=== PATIENT | male | born 1985 | race Caucasian/White ===

== ENCOUNTER 2020-02-16 23:50 | Emergency (ER) | payer SELFPAY ==
[~2020-02-16] VITALS: Ht 170 cm; Wt 90.0 kg
--- OUTSIDE RECORDS SUMMARY | 2020-02-16 23:59 | XMS REPORT | Referral Summary ---
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 Phone No PCP, Pt States PCP Encounter [facility] [id number] Date(s): 06/25/15 - 06/25/15 [facility] [address] [place] [address] [phone] Discharge Diagnosis: Work related injury Discharge Diagnosis: Finger laceration Final: OPEN FRACTURE OF DISTAL PHALANX OR PHALANGES OF HAND Final: Need for prophylactic vaccination and inoculation against Diptheria-tetan us-pertussis, combined [DTP] [DTaP] Final: CAUGHT ACCIDENTALLY IN OR BETWEEN OBJECTS Final: ACCIDENTS OCCURRING IN PUBLIC BUILDING Discharge Diagnosis: Open avulsion fracture of distal phalanx of finger Discharge Disposition: 01-Home or Self Care Attending Physician: Ravindra Elias DO Admitting Physician: Ravindra Elias DO Vital Signs Most recent to 1 oldest [Reference Range]: Temperature Oral 37.1 degC [35.8-37.3 degC] (06/25/15 5:20 PM) Peripheral Pulse 95 bpm Rate [60-100 bpm] (06/25/15 5:20 PM) Respiratory Rate 20 br/min [14-20 br/min] (06/25/15 5:20 PM) Blood Pressure 133/77 mmHg [90-140/60-90 mmHg] (06/25/15 5:20 PM) SpO2 98 % (06/25/15 5:20 PM) Problem List No data available for this section Allergies, Adverse Reactions, Alerts No Known Medication Allergies Medications ibuprofen 0 Refill(s) Start Date: 06/25/15 Status: Ordered Results No data available for this section Immunizations Vaccine Date Refusal Reason tetanus/diphth/pertuss (Tdap) adult/adol 06/25/15 Procedures Procedure Date Related Diagnosis Body Site Simple repair of superficial wounds of scalp, 06/25/15 neck, axillae, external genitalia, trun k and/or extremities (including hands and feet); 7.6 cm to 12.5 cm Simple repair of superficial wounds of scalp, 06/25/15 neck, axillae, external genitalia, trun k and/or extremities (including hands and feet); 7.6 cm to 12.5 cm Simple repair of superficial wounds of scalp, 06/25/15 neck, axillae, external genitalia, trun k and/or extremities (including hands and feet); 7.6 cm to 12.5 cm Social History Social History Type Response Smoking Status Never smoker Assessment and Plan No data available for this section
[2020-02-17] MEDS ORDERED: NS IV 1000 ML 1,000 ML IV ONE (00:15)
[2020-02-17] MEDS ORDERED: THIAMINE 100 MG/ML 2 ML (VITAMIN B-1) VIAL IV ONE (00:15)
[2020-02-17] MEDS ORDERED: MAGNESIUM 1 GM/100 ML IVPB 100 ML IV ONE (00:15)
[2020-02-17] MEDS ORDERED: FOLIC ACID 1 MG TAB PO ONE (00:15)
--- NOTE | 2020-02-17 00:20 | ED General ---
General Stated Complaint: FALL Source of Information: Patient, Caregiver (girlfriend) Exam Limitations: Intoxication (patient is significantly intoxicated with lateral gaze nystagmus no evidence of significant trauma however he has covered with mud and dirt but agrees to have evaluation and care) History of Present Illness Date Seen by Provider: Feb 17, 2020 Time Seen by Provider: 00:01 Initial Comments 34-year-old male referred by girlviry to the emergency room. Patient has been drinking and is intoxicated. He is fallen into a muddy area is covered with mud he has no obvious lacerations and has no shoulder or elbow or wrist pain no hip knee or ankle pain. Patient admits to drinking large amounts of alcohol this evening. Girlfriend says she wants him evaluated in the emergency room. Patient denies any other serious medical problems of cardiac pulmonary GI or renal disease. He states he has a history of a heart murmur although this is not identifiable on examination this evening. Patient has given informed consent for hydration and diagnostic evaluation. Patient will be started on IV saline with thiamine and folate IV. Timing/Duration: 12 Hours Severity: Moderate Modifying Factors: improves with Other (arced intoxication lateral gaze nystagmus no evidence of head trauma) Associated Systoms: Other (marked intoxication) Allergies and Home Medications Allergies Coded Allergies: No Known Allergies (Verified Allergy, Unknown, 03/15/06) Patient Home Medication List Home Medication List Reviewed: Yes Review of Systems Review of Systems Constitutional: other (vision with acute alcohol intoxication. Girlfriend reports he's been drinking patient denies any other serious medical problems with the exception of a heart murmur which is not identifiable on this exam) EENTM: no symptoms reported, other (a she has fallen into a muddy area and is covered with mud) Respiratory: no symptoms reported Cardiovascular: no symptoms reported (has a history of a innocent heart murmur) Gastrointestinal: no symptoms reported (admits to drinking all day) Genitourinary: no symptoms reported Musculoskeletal: no symptoms reported (with achiness in his muscles but no signs of trauma) Skin: no symptoms reported Psychiatric/Neurological: Anxiety, Other (intoxicated) Hematologic/Lymphatic: No Symptoms Reported Immunological/Allergic: no symptoms reported Past Ncjkdra-Xxhqhi-Zhlzye Hx Past Med/Social Hx: Reviewed and Corrections made Patient Social History Alcohol Use: Regular Use Alcohol Beverage of Choice: Other ( presents with acute alcohol intoxication) Recreational Drug Use: No Smoking Status: Current Everyday Smoker Recent Foreign Travel: No Contact w/Someone Who Travel: No Seasonal Allergies Seasonal Allergies: No Past Medical History Surgeries: No Respiratory: No Currently Using CPAP: No Currently Using BIPAP: No Cardiac: No Neurological: No Gastrointestinal: No Musculoskeletal: No Endocrine: No Are Your Blood Sugars Over 250: No HEENT: No Cancer: No Psychosocial: Yes (alcohol use disorder) Integumentary: No Blood Disorders: No Physical Exam Vital Signs Vital Signs - First Documented 02/16/20 23:55 Temp 36.6 Pulse 72 Resp 16 B/P (MAP) 120/74 (89) Pulse Ox 98 O2 Delivery Room Air Capillary Refill : Height, Weight, BMI Height: '" Weight: lbs. oz. kg; BMI Method: General Appearance: WD/WN, Moderate Distress, Other (acute alcohol intoxication girlfriend referred patient to the emergency room) Eyes: Bilateral Eye PERRL, Bilateral Eye EOMI, Bilateral Eye Other (lateral gaze K Stegmann is consistent with alcohol intoxication) HEENT: PERRL/EOMI, Pharynx Normal (poor hygiene) Neck: Full Range of Motion, Normal Inspection, Non Tender, Supple Respiratory: Chest Non Tender, Lungs Clear, Normal Breath Sounds, No Accessory Muscle Use, No Respiratory Distress Cardiovascular: Regular Rate, Rhythm, No Edema, No Gallop, No JVD, No Murmur (patient reports history of a murmur in childhood but this is not identifiable at this time) Gastrointestinal: Normal Bowel Sounds, No Organomegaly, No Pulsatile Mass, Non Tender, Soft Back: Normal Inspection, No CVA Tenderness, No Vertebral Tenderness Extremity: Normal Capillary Refill, Normal Inspection, Normal Range of Motion, Non Tender, No Calf Tenderness Neurologic/Psychiatric: Other (acute alcohol intoxication) Reflexes: 2+ Bicep (R), 2+ Bicep (L), 2+ Knee (R), 2+ Knee (L) Skin: Normal Color, Warm/Dry (but covered with moderate no evidence of trauma) Lymphatic: No Adenopathy Progress/Results/Core Measures Suspected Sepsis SIRS Temperature: Pulse: Respiratory Rate: Laboratory Tests 02/17/20 00:28: White Blood Count 8.4 Blood Pressure / Mean: Laboratory Tests 02/17/20 00:28: Creatinine 0.73, Platelet Count 189, Total Bilirubin 0.2 Results/Orders Lab Results Laboratory Tests Test 02/17/20 00:28 02/17/20 00:31 Range/Units White Blood Count 8.4 4.3-11.0 10^3/uL Red Blood Count 4.89 4.35-5.85 10^6/uL Hemoglobin 14.3 13.3-17.7 G/DL Hematocrit 42 40-54 % Mean Corpuscular Volume 85 80-99 FL Mean Corpuscular Hemoglobin 29 25-34 PG Mean Corpuscular Hemoglobin Concent 34 32-36 G/DL Red Cell Distribution Width 12.6 10.0-14.5 % Platelet Count 189 130-400 10^3/uL Mean Platelet Volume 9.9 7.4-10.4 FL Neutrophils (%) (Auto) 69 42-75 % Lymphocytes (%) (Auto) 24 12-44 % Monocytes (%) (Auto) 7 0-12 % Eosinophils (%) (Auto) 0 0-10 % Basophils (%) (Auto) 1 0-10 % Neutrophils # (Auto) 5.8 1.8-7.8 X 10^3 Lymphocytes # (Auto) 2.0 1.0-4.0 X 10^3 Monocytes # (Auto) 0.6 0.0-1.0 X 10^3 Eosinophils # (Auto) 0.0 0.0-0.3 10^3/uL Basophils # (Auto) 0.0 0.0-0.1 10^3/uL Neutrophils % (Manual) 65 % Lymphocytes % (Manual) 18 % Monocytes % (Manual) 6 % Atypical Lymphocytes 11 % Sodium Level 137 135-145 MMOL/L Potassium Level 4.1 3.6-5.0 MMOL/L Chloride Level 101 98-107 MMOL/L Carbon Dioxide Level 20 L 21-32 MMOL/L Anion Gap 16 H 5-14 MMOL/L Blood Urea Nitrogen 8 7-18 MG/DL Creatinine 0.73 0.60-1.30 MG/DL Estimat Glomerular Filtration Rate > 60 BUN/Creatinine Ratio 11 Glucose Level 126 H 70-105 MG/DL Calcium Level 8.7 8.5-10.1 MG/DL Corrected Calcium 8.3 L 8.5-10.1 MG/DL Total Bilirubin 0.2 0.1-1.0 MG/DL Aspartate Amino Transf (AST/SGOT) 45 H 5-34 U/L Alanine Aminotransferase (ALT/SGPT) 52 0-55 U/L Alkaline Phosphatase 63 40-136 U/L Total Protein 7.9 6.4-8.2 GM/DL Albumin 4.5 3.2-4.5 GM/DL Serum Alcohol 310 *H <10 MG/DL Urine Color YELLOW Urine Clarity CLEAR Urine pH 5.0 5-9 Urine Specific [place] 1.010 L 1.016-1.022 Urine Protein NEGATIVE NEGATIVE Urine Glucose (UA) NEGATIVE NEGATIVE Urine Ketones NEGATIVE NEGATIVE Urine Nitrite NEGATIVE NEGATIVE Urine Bilirubin NEGATIVE NEGATIVE Urine Urobilinogen 0.2 < = 1.0 MG/DL Urine Leukocyte Esterase NEGATIVE NEGATIVE Urine RBC (Auto) NEGATIVE NEGATIVE Urine RBC NONE /HPF Urine WBC NONE /HPF Urine Squamous Epithelial Cells 0-2 /HPF Urine Crystals NONE /LPF Urine Bacteria NEGATIVE /HPF Urine Casts NONE /LPF Urine Mucus NEGATIVE /LPF Urine Culture Indicated NO Urine Opiates Screen NEGATIVE NEGATIVE Urine Oxycodone Screen NEGATIVE NEGATIVE Urine Methadone Screen NEGATIVE NEGATIVE Urine Propoxyphene Screen NEGATIVE NEGATIVE Urine Barbiturates Screen NEGATIVE NEGATIVE Ur Tricyclic Antidepressants Screen NEGATIVE NEGATIVE Urine Phencyclidine Screen NEGATIVE NEGATIVE Urine Amphetamines Screen NEGATIVE NEGATIVE Urine Methamphetamines Screen NEGATIVE NEGATIVE Urine Benzodiazepines Screen NEGATIVE NEGATIVE Urine Cocaine Screen NEGATIVE NEGATIVE Urine Cannabinoids Screen NEGATIVE NEGATIVE My Orders Orders - LINDA OAKES DO Alcohol (02/17/20 00:10) Cbc And Manual Diff (02/17/20 00:10) Comprehensive Metabolic Panel (02/17/20 00:10) Urinalysis (02/17/20 00:10) Ns Iv 1000 Ml (Sodium Chloride 0.9%) (02/17/20 00:15) Thiamine Injection (Vitamin B-1 Injectio (02/17/20 00:15) Folic Acid Tablet (Folic Acid Tablet) (02/17/20 00:15) Magnesium 1 Gm/100 Ml Ivpb (Magnesium Swift (02/17/20 00:15) Drug Screen Stat (Urine) (02/17/20 00:14) Ed Iv/Invasive Line Start (02/17/20 00:51) Medications Given in ED Current Medications Medications Dose Ordered Sig/Jhony Route Start Time Stop Time Status Last Admin Dose Admin Folic Acid 1 mg ONCE ONCE PO 02/17/20 00:15 02/17/20 00:16 DC 02/17/20 00:36 1 MG Magnesium Sulfate/ Dextrose 100 ml @ 100 mls/hr ONCE ONCE IV 02/17/20 00:15 02/17/20 01:14 DC 02/17/20 00:36 100 MLS/HR Sodium Chloride 1,000 ml @ 999 mls/hr Q1H ONCE IV 02/17/20 00:15 02/17/20 01:15 DC 02/17/20 00:35 999 MLS/HR Thiamine HCl 100 mg ONCE ONCE IV 02/17/20 00:15 02/17/20 00:16 DC 02/17/20 00:36 100 MG Vital Signs/I&O 02/16/20 23:55 Temp 36.6 Pulse 72 Resp 16 B/P (MAP) 120/74 (89) Pulse Ox 98 O2 Delivery Room Air Capillary Refill : Progress Note : Time: 01:36 Progress Note Patient is now more alert and asking to go home. One hour ago his blood alcohol was 310. Rest of his labs are essentially normal. Patient is aware of the risks of continued alcohol use disorder. Girlfriends wanted to take charge of him and to monitor him for the evening. Patient is strongly encouraged to drink plenty of fluids. He has received 1 L of normal saline in addition to 100 mg of thiamine and 1 mg of folate and 1 g of magnesium. Patient is aware that his continued use of alcohol will cause significant health complications for him. Departure Impression Primary Impression: Acute alcoholic intoxication Additional Impression: Alcohol abuse Disposition: 01 HOME, SELF-CARE (with a girlfriend supervise him) Condition: Improved Departure-Patient Inst. Decision time for Depature: 01:41 Referrals: NO,LOCAL PHYSICIAN (PCP) Primary Care Physician Patient Instructions: ALCOHOL AND SUBSTANCE ABUSE, Alcohol Use - When Is Drinking a Problem? Add. Discharge Instructions: The patient came in with acute alcohol intoxication blood alcohol was 310. Patient woke up one hour later asking to be discharged to his girlfriend. Patient is aware that continued alcohol use will cause significant harm to his medical in emotional status. He is medically stable at this time but still intoxicated with alcohol. Girlfriend will provide him with safe travel and not allow him to drive. She will also continue to hydrate him with nonalcoholic beverages. LINDA OAKES DO Feb 17, 2020 00:20
[2020-02-17 00:40] LABS: BASOPHILS % (AUTO) 1 % (0-10); EOSINOPHILS % (AUTO) 0 % (0-10); HEMATOCRIT 42 % (40-54); HEMOGLOBIN 14.3 G/DL (13.3-17.7); LYMPHOCYTES % (AUTO) 24 % (12-44); MEAN CORPUSCULAR HEMOGLOBIN 29 PG (25-34); MEAN CORPUSCULAR HGB CONC 34 G/DL (32-36); MEAN CORPUSCULAR VOLUME 85 FL (80-99); MEAN PLATELET VOLUME 9.9 FL (7.4-10.4); MONOCYTES # (AUTO) 0.6 X 10^3 (0.0-1.0); MONOCYTES % (AUTO) 7 % (0-12); NEUTROPHILS # (AUTO) 5.8 X 10^3 (1.8-7.8); NEUTROPHILS % (AUTO) 69 % (42-75); PLATELET COUNT 189 10^3/uL (130-400); RED CELL DISTRIBUTION WIDTH 12.6 % (10.0-14.5); WHITE BLOOD COUNT 8.4 10^3/uL (4.3-11.0)
[2020-02-17 00:45] LABS: BILIRUBIN,URINE NEGATIVE (NEGATIVE); CLARITY,URINE CLEAR; COLOR,URINE YELLOW; GLUCOSE, URINE (UA) NEGATIVE (NEGATIVE); KETONES,URINE NEGATIVE (NEGATIVE); NITRITE,URINE NEGATIVE (NEGATIVE); PROTEIN,URINE NEGATIVE (NEGATIVE)
[2020-02-17 00:46] LABS: BACTERIA,URINE NEGATIVE /HPF; LEUKOCYTE ESTERASE ,URINE NEGATIVE (NEGATIVE); SQUAMOUS EPITHELIAL CELL,UR 0-2 /HPF
[2020-02-17 00:52] LABS: AMPHETAMINE SCREEN, URINE NEGATIVE (NEGATIVE); BARBITURATE SCREEN URINE NEGATIVE (NEGATIVE); BENZODIAZEPINES SCREEN URINE NEGATIVE (NEGATIVE); CANNABINOID SCREEN, URINE NEGATIVE (NEGATIVE); COCAINE SCREEN URINE NEGATIVE (NEGATIVE); METHADONE STAT NEGATIVE (NEGATIVE); METHAMPHETAMINE SCREEN URINE S NEGATIVE (NEGATIVE); OPIATE SCREEN URINE NEGATIVE (NEGATIVE); OXYCODONE STAT NEGATIVE (NEGATIVE); PROPOXYPHENE STAT NEGATIVE (NEGATIVE); TRICYCLIC ANTIDEPRESSANTS SCRE NEGATIVE (NEGATIVE)
[2020-02-17 00:55] LABS: ATYPICAL LYMPHOCYTES 11 %; LYMPHOCYTES % (MANUAL) 18 %; MONOCYTES % (MANUAL) 6 %; NEUTROPHILS % (MANUAL) 65 %
[2020-02-17 00:56] LABS: ALANINE AMINOTRANSFERASE 52 U/L (0-55); ALKALINE PHOSPHATASE 63 U/L (40-136); BILIRUBIN,TOTAL 0.2 MG/DL (0.1-1.0); BUN/CREATININE RATIO 11; CALCIUM 8.7 MG/DL (8.5-10.1); CARBON DIOXIDE 20 MMOL/L (21-32); CHLORIDE 101 MMOL/L (98-107); CREATININE SERUM 0.73 MG/DL (0.60-1.30); GFR ESTIMATED > 60; GLUCOSE 126 MG/DL (70-105); POTASSIUM 4.1 MMOL/L (3.6-5.0); SODIUM 137 MMOL/L (135-145)
[2020-02-17 00:57] LABS: ALBUMIN 4.5 GM/DL (3.2-4.5); TOTAL PROTEIN 7.9 GM/DL (6.4-8.2)
[2020-02-17 01:50] VITALS: BP 110/66
== END 2020-02-17 01:50 | disposition home or self-care (01) ==
LOC: EDUNIT# 23:50 → ER FS 23:55
DX: F10.229 Alcohol dependence with intoxication, unspecified (principal); Y90.8 Blood alcohol level of 240 mg/100 ml or more
CPT/HCPCS: 36415; 80053; 80306; 80320; 81000; 85007; 85027; 96361; 96365; 96375

== ENCOUNTER 2020-09-20 15:35 | Emergency (ER) | payer SELFPAY ==
[~2020-09-20] VITALS: Ht 170.1 cm; Wt 95.6 kg
--- NOTE | 2020-09-20 15:44 | ED Integumentary General ---
General Stated Complaint: LT INDEX FINGER LAC History of Present Illness Date Seen by Provider: Sep 20, 2020 Time Seen by Provider: 15:44 Initial Comments 35-year-old male was working with a grinder operator surface tool. The grinder operator surface tool slipped and he suffered a laceration on the dorsal aspect of his left index finger. An approximate 3 cm laceration on the proximal aspect between the 2 joints. He does have full range of motion, no other injury reported. Last tetanus was within 5 years. Allergies and Home Medications Allergies Coded Allergies: No Known Allergies (Verified Allergy, Unknown, 03/15/06) Patient Home Medication List Home Medication List Reviewed: Yes Review of Systems Review of Systems Constitutional: no symptoms reported EENTM: no symptoms reported Gastrointestinal: no symptoms reported Genitourinary: no symptoms reported Musculoskeletal: see HPI Skin: see HPI Psychiatric/Neurological: No Symptoms Reported Past Nlvrovh-Leumpd-Qusxri Hx Past Med/Social Hx: Reviewed Nursing Past Med/Soc Hx Patient Social History Alcohol Beverage of Choice: Other Recent Foreign Travel: No Contact w/Someone Who Travel: No Recent Hopitalizations: No Seasonal Allergies Seasonal Allergies: No Past Medical History Surgeries: No Respiratory: No Currently Using CPAP: No Currently Using BIPAP: No Cardiac: No Neurological: No Genitourinary: No Gastrointestinal: No Musculoskeletal: No Endocrine: No HEENT: No Cancer: No Psychosocial: Yes (alcohol use disorder) Integumentary: No Blood Disorders: No Physical Exam Vital Signs Capillary Refill : General Appearance: WD/WN, no apparent distress Cardiovascular: normal peripheral pulses, regular rate, rhythm Respiratory: lungs clear, normal breath sounds Gastrointestinal: non tender, soft Extremities: normal range of motion Skin Problem Location: other (left index finger) Skin Problem Character: linear (approximate 4 cm laceration) Procedures/Interventions Wound Location: Upper Extremities Other Wound Location Dorsal aspect left index finger Wound Length (cm): 4 Wound's Depth, Shape: into muscle Wound Explored: clean Betadine Prep?: Yes Anesthesia: 1% Lidocaine Volume Anesthetic (ccs): 3 Wound Debrided: minimal Suture: Prolene Suture Size: 4-0 Number of Sutures: 4 Sterile Dressing Applied?: Yes Progress Patient tolerated well with good approximation, no immediate complications Progress/Results/Core Measures Results/Orders My Orders Orders - MERY HINTON DO Lidocaine 1% Inj 20 Ml (Xylocaine 1% Inj (09/20/20 15:45) Departure Impression Primary Impression: Laceration of left index finger without foreign body without damage to nail Qualified Codes: S61.211A - Laceration without foreign body of left index finger without damage to nail, initial encounter Disposition: 01 HOME, SELF-CARE Condition: Stable Departure-Patient Inst. Referrals: MOISES NG APRN (PCP/Family) Primary Care Physician Patient Instructions: Laceration Repair With Stitches (DC), Wound Care Add. Discharge Instructions: Return to the ER or to your primary care provider in approximately 10 days for suture removal Keep clean with warm soapy water, keep dry and covered when working Do not submerge for 48 hours Monitor for infection MERY HINTON DO Sep 20, 2020 15:44
[2020-09-20 15:45] VITALS: BP 112/74
[2020-09-20] MEDS ORDERED: LIDOCAINE 1% INJ 20 ML 20 ML VIAL INJ ONE (15:45)
== END 2020-09-20 16:51 | disposition home or self-care (01) ==
LOC: EDUNIT# 15:35 → ER FS 15:36
DX: S61.211A Laceration without foreign body of left index finger without damage to nail, initial encounter (principal); W29.0XXA Contact with powered kitchen appliance, initial encounter
CPT/HCPCS: 12002

== ENCOUNTER → 2020-12-26 | Outpatient (CLI) | payer SELFPAY ==
--- NOTE | 2020-12-26 11:54 | Diagnostic Imaging Report ---
INDICATION: Pain. Four views of the left ribs are performed. No fracture, dislocation or bony destructive process. No abnormal periosteal reaction. The left lung was clear. No pleural fluid or pneumothorax. No free air beneath the left diaphragm. IMPRESSION: Unremarkable left rib series. Dictated by: Dictated on workstation # [id number]
== END ==
LOC: RAD FS 11:27
PROVIDERS: ATTEND Nurse Practitioner Family
DX: S23.41XA Sprain of ribs, initial encounter (principal); X58.XXXA Exposure to other specified factors, initial encounter
CPT/HCPCS: 71100

== ENCOUNTER → 2022-11-10 | Outpatient (CLI) | payer OTHER ==
--- NOTE | 2022-11-10 18:53 | Diagnostic Imaging Report ---
INDICATION: Pain. COMPARISON: None available. TECHNIQUE: Three radiographs of the right knee dated 11/10/2022. FINDINGS: Evidence of a prior ACL reconstruction. Potential lucency is noted about the screw within the distal femur, best visualized on the oblique radiograph. This is eccentrically located medially. However, this does not definitely conform to the screw on the lateral radiograph. No acute fracture or dislocation. No knee joint effusion. Small superior patellar enthesophytes. No suspicious radiopaque foreign body. Moderate medial joint space narrowing with minimal osteophytosis. The lateral compartment is well maintained. IMPRESSION: Evidence of prior ACL reconstruction. Potential lucency is seen about the femoral screw, though this is not definitely associated with this screw on the lateral radiograph. This could relate to loosening. Alternatively, this could simply relate to superimposition of osseous structures. Recommend comparison to prior imaging. Additionally, follow-up radiographs would be recommended. No acute fracture with fvim-dy-habglaqm degenerative changes present, particularly within the medial compartment. Dictated by: Dictated on workstation # [id number]
== END ==
LOC: RAD FS 15:32
PROVIDERS: ATTEND Nurse Practitioner Family
DX: M25.561 Pain in right knee (principal); G89.29 Other chronic pain; Z98.890 Other specified postprocedural states
CPT/HCPCS: 73562

== ENCOUNTER 2023-02-20 13:09 | Emergency (ER) | payer BC ==
[~2023-02-20] VITALS: Ht 170.2 cm; Wt 97.4 kg
--- NOTE | 2023-02-20 13:15 | ED Upper Extremity ---
General Chief Complaint: Upper Extremity Stated Complaint: LEFT WRIST PAIN History of Present Illness Date Seen by Provider: Feb 20, 2023 Time Seen by Provider: 13:15 Initial Comments 37-year-old male presents with left medial wrist pain. Patient reports that he was lifting something and had pain along the medial aspect of his wrist and goes up and down his forearm forearm. He does not remember hitting head or injuring any other way. He has full range of motion. No obvious deformity swelling or other change noted Allergies and Home Medications Allergies Coded Allergies: No Known Allergies (Verified Allergy, Unknown, 03/15/06) Patient Home Medication List Home Medication List Reviewed: Yes Review of Systems Constitutional: No chills, No fever EENTM: no symptoms reported Respiratory: no symptoms reported Cardiovascular: no symptoms reported Genitourinary: no symptoms reported Musculoskeletal: see HPI Skin: see HPI Past Whmfaun-Ckoewq-Pibtay Hx Immunizations Up To Date Tetanus Booster (TDap): Less than 5yrs Seasonal Allergies Seasonal Allergies: No Past Medical History Surgeries: Yes (knee ACL) Respiratory: No Currently Using CPAP: No Currently Using BIPAP: No Cardiac: Yes Irregular Heartbeat Neurological: No Genitourinary: No Gastrointestinal: No Musculoskeletal: No Endocrine: No HEENT: No Cancer: No Psychosocial: Yes (alcohol use disorder) Integumentary: No Blood Disorders: No Physical Exam Vital Signs Vital Signs - First Documented 02/20/23 13:17 Temp 36.0 Pulse 67 Resp 16 B/P (MAP) 136/99 (111) Pulse Ox 98 O2 Delivery Room Air Capillary Refill : Height, Weight, BMI Height: '" Weight: lbs. oz. kg; 31.00 BMI Method: General Appearance: WD/WN, no apparent distress Cardiovascular: normal peripheral pulses, regular rate, rhythm Respiratory: lungs clear, normal breath sounds Gastrointestinal: non tender, soft Shoulder: normal inspection Elbow/Forearm: normal inspection Wrist: Yes no evidence of injury; No deformity, No ecchymosis; Yes soft tissue tenderness Hand: normal inspection, no evidence of injury Neurologic/Tendon: normal sensation, normal motor functions, normal tendon functions Neurologic/Psychiatric: alert, normal mood/affect, oriented x 3 Skin: normal color, warm/dry Procedures/Interventions Suture Size: 4-0 Progress/Results/Core Measures Results/Orders My Orders Orders - MERY HINTON DO Wrist 3 View Left (02/20/23 13:18) Wrist-[place] (02/20/23 13:48) Vital Signs/I&O 02/20/23 13:17 Temp 36.0 Pulse 67 Resp 16 B/P (MAP) 136/99 (111) Pulse Ox 98 O2 Delivery Room Air Progress Progress Note : Progress Note Patient's x-ray was ordered reviewed with initial interpretation negative by me. Final interpretation per radiology report. Patient with likely wrist sprain. Will place in a cock up splint recommend rest and wear when lifting. He is stable and discharged Departure Impression Primary Impression: Unspecified sprain of left wrist, initial encounter Disposition: HOME, SELF-CARE Condition: Stable Departure-Patient Inst. Referrals: OLIVER GROVER APRN (PCP/Family) Primary Care Physician Patient Instructions: Common Wrist Injuries (DC), Wrist Sprain ED Add. Discharge Instructions: Please wear wrist splint for 1 week while lifting, then as needed. Tylenol ibuprofen as needed for discomfort. Follow-up with your primary care provider if symptoms continue to worsen for further evaluation All discharge instructions reviewed with patient and/or family. Voiced understanding. MERY HINTON DO Feb 20, 2023 13:15
[2023-02-20 13:17] VITALS: BP 136/99
--- NOTE | 2023-02-20 13:53 | Diagnostic Imaging Report ---
INDICATION: Left wrist pain post injury TECHNIQUE: 3 views of the left wrist CORRELATION STUDY: None FINDINGS: The osseous structures of the wrist have an unremarkable appearance. Alignment is anatomic. There is no acute bony abnormality. The visualized soft tissues appearing unremarkable. IMPRESSION: 1. Negative examination of the left wrist. Dictated by: Dictated on workstation # [id number]
== END 2023-02-20 13:55 | disposition home or self-care (01) ==
LOC: EDUNIT# 13:09 → ER FS 13:11
DX: S63.502A Unspecified sprain of left wrist, initial encounter (principal); X50.0XXA Overexertion from strenuous movement or load, initial encounter
CPT/HCPCS: 73110

== ENCOUNTER → 2023-04-09 | Outpatient (CLI) | payer BC ==
--- NOTE | 2023-04-09 12:26 | Diagnostic Imaging Report ---
EXAMINATION: Magnetic resonance imaging of the right knee without intravenous contrast DATE: April 09, 2023. COMPARISON: Right knee radiographs November 10, 2022. INDICATION: 38-year-old male, chronic right knee pain. TECHNIQUE: Multiplanar, multisequence non contrast enhanced MR imaging was accomplished. FINDINGS: MENISCI: There is an oblique tear with superior surface extension involving the posterior horn of the medial meniscus. There is approximately 25-50% volume loss of the body and posterior horn of the medial meniscus. The lateral meniscus is intact. LIGAMENTS AND TENDONS: The patient is status post anterior cruciate ligament reconstruction. The graft appears intact. There is a cystic mass adjacent to the anterior aspect of the graft measuring approximately 2.2 x 1.9 x 1.4 cm in size perhaps best demonstrated on sagittal PD fat saturation sequence image 14. The posterior cruciate ligament is intact. The medial collateral ligament is intact. The iliotibial band, mid third lateral capsular ligament, fibular collateral ligament, biceps femoris tendon and conjoined tendon are intact. There are postoperative changes of the patellar tendon, likely relating to graft harvest site. The patellar tendon is otherwise intact. The distal quadriceps tendon is intact. JOINT: The articular cartilage surfaces are intact. There is no knee joint effusion, prominent synovitis, or intra-articular body. BONE: There is no acute fracture, bone contusion, or evidence of osteonecrosis. BURSAE AND SOFT TISSUES: There is a lobulated proximal tibiofibular ganglion cyst measuring approximately 15 x 9 x 15 mm in size. There is no fatty muscle atrophy or abnormal intramuscular signal. IMPRESSION: 1. Status post anterior cruciate ligament reconstruction with intact graft fibers. There is a cystic mass adjacent to the anterior aspect of the graft which measures approximately 2.2 x 1.9 x 1.4 cm in size. 2. Oblique tear with superior surface extension involving the posterior horn of the medial meniscus. Approximately 25-50% volume loss of the body and posterior horn of the medial meniscus. 3. Intact lateral meniscus. 4. Intact articular cartilage. No knee joint effusion. 5. No acute fracture, bone contusion, or evidence of osteonecrosis. 6. Proximal tibiofibular ganglion cyst without fatty muscle atrophy or abnormal intramuscular signal. Dictated by: Dictated on workstation # [id number]
== END ==
LOC: RAD 09:13
PROVIDERS: ATTEND Nurse Practitioner Family
DX: M67.461 Ganglion, right knee (principal); S83.241A Other tear of medial meniscus, current injury, right knee, initial encounter; X58.XXXA Exposure to other specified factors, initial encounter; Z98.890 Other specified postprocedural states; Z96.7 Presence of other bone and tendon implants
CPT/HCPCS: 73721